=== PATIENT | female | born 1945 | race Caucasian/White ===

== ENCOUNTER 2017-08-06 16:14 | Outpatient (CLI) | payer MEDICARE, OTHER | END 2017-08-06 16:15 | disposition home or self-care (01) | LOC: LAB.R 16:14 | PROVIDERS: ATTEND Physician Assistant Medical | DX: E03.9 Hypothyroidism, unspecified (principal); Z79.899 Other long term (current) drug therapy | CPT/HCPCS: 84443 ==

== ENCOUNTER 2017-08-12 13:40 | Outpatient (CLI) | payer MEDICARE, OTHER ==
--- NOTE | 2017-08-12 17:50 | Ultrasound Report ---
ULTRASOUND LEFT KIDNEY: 08/12/2017 CLINICAL INDICATION: Exophytic lesion left kidney on outside MRI. TECHNIQUE: Real-time scanning was performed with medical representative static images obtained. Ultrasound of the left kidney was performed. It measures 12.7 x 5.8 x 5.4 cm. There is a 1.3 x 1.2 x 1.0 cm exophytic cyst arising from the lateral cortex of the left kidney. No solid mass is seen. No hydronephrosis or perinephric collection is present. IMPRESSION: A 1.3 CM EXOPHYTIC CYST ARISING FROM THE CORTEX OF THE LEFT KIDNEY. NO SOLID MASS. JOB #: [id number] EXT JOB #:[id number]
== END 2017-08-12 13:41 | disposition home or self-care (01) ==
LOC: DI 13:40
PROVIDERS: ATTEND Physician Assistant Medical
DX: Q61.01 Congenital single renal cyst (principal)
CPT/HCPCS: 76775

== ENCOUNTER 2017-10-14 11:28 | Outpatient (CLI) | payer MEDICARE, OTHER ==
--- NOTE | 2017-10-20 11:35 | Mammography Report ---
EXAM: DIGITAL BILATERAL SCREENING MAMMOGRAM: 10/14/2017 CLINICAL INDICATION: A 72-year-old, for screening. COMPARISON: 10/2016, 10/2015, 09/2014. TECHNIQUE: Routine CC and MLO projections were obtained of the breasts. FINDINGS: Parenchymal tissue within the breasts is predominantly fatty replaced. There are no dominant masses, suspicious microcalcifications, or secondary signs of malignancy. In comparison to the previous studies, there are no significant changes. IMPRESSION: NO MAMMOGRAPHIC EVIDENCE OF MALIGNANCY. NO SIGNIFICANT INTERVAL CHANGES. RECOMMENDATION: Screening mammography is recommended annually. BIRADS category 1 - negative. STANDARD QUALIFYING STATEMENTS: 1. This examination was reviewed with the aid of Computed-Aided Detection (CAD) . 2. A negative or benign imaging report should not delay biopsy if clinically suspicious findings are present. Consider surgical consultation if warranted. More than 5% of cancers are not identified by imaging. 3. Dense breasts may obscure an underlying neoplasm. TD: 10/15/2017 16:26 [facility]
== END 2017-10-14 11:29 | disposition home or self-care (01) ==
LOC: DI.N 11:28
PROVIDERS: ATTEND Physician Assistant Medical
DX: Z12.31 Encounter for screening mammogram for malignant neoplasm of breast (principal)
CPT/HCPCS: 77067

== ENCOUNTER 2018-04-27 10:18 | Outpatient (CLI) | payer MEDICARE, OTHER ==
--- NOTE | 2018-04-27 14:54 | XRAY Report ---
Procedure Date: 04/27/2018 Accession Number: [id number] / [id number] Procedure: XR - Hip w/Pelvis 2-3V RT CPT Code: FULL RESULT: EXAM: Hip w/Pelvis 2-3V RT DATE: 04/27/2018 10:29 AM CLINICAL HISTORY: HIP JOINT PAIN,RIGHT COMPARISON: 11/15/2014 TECHNIQUE: 1 view of the pelvis and 1 view of the hip. FINDINGS: Bones: Normal. No fracture or bone lesion. Joints: Mild right hip osteoarthritis. No significant interval change. Soft Tissues: Postoperative changes in both groins. IMPRESSION: Mild osteoarthritis. No significant interval change. [facility]
== END 2018-04-27 10:19 | disposition home or self-care (01) ==
LOC: DI 10:18
PROVIDERS: ATTEND Physician Assistant Medical
DX: M16.11 Unilateral primary osteoarthritis, right hip (principal)

== ENCOUNTER 2018-10-12 13:03 | Outpatient (CLI) | payer MEDICARE, OTHER ==
--- NOTE | 2018-10-13 09:05 | DEXA Report ---
Reason: POSTMENOPAUSAL Procedure Date: 10/12/2018 Accession Number: [id number] / [id number] Procedure: DEX - Dexa Spine and/or Hip CPT Code: FULL RESULT: EXAM: Dexa Spine and/or Hip DATE: 10/12/2018 2:00 PM CLINICAL HISTORY: POSTMENOPAUSAL TECHNIQUE: Dual energy x-ray absorptiometry (DXA) was performed on a Tesseract Interactive System. Regions measured are the AP Spine, femoral neck, and if needed forearm. COMPARISON: None. In accordance with the International Society for Clinical Densitometry (ISCD) guidelines, data from previous exams may be reanalyzed using current recommendations and techniques. This is done to allow a more accurate basis for comparison with the current study. FINDINGS: The data for the lumbar spine is as follows: BMD (g/cm/cm) T-SCORE Z-SCORE REGION L1 1.015 -1.0 0.0 L2 1.233 0.3 1.2 L3 1.282 0.7 1.6 L4 1.102 -0.8 0.1 TOTAL 1.156 -0.2 0.7 NOTE: All evaluable vertebrae are used for classification The data for the hip is as follows: BMD (g/cm/cm) T-SCORE Z-SCORE REGION Neck 0.854 -1.3 -0.1 TOTAL 0.901 -0.8 0.1 NOTE: The femoral neck or total proximal femur, whichever is lowest, is used for classification. IMPRESSION: THE WHO CLASSIFICATION BASED ON THE INTERNATIONAL REFERENCE STANDARD IS OSTEOPENIA. THE FRACTURE RISK IS INCREASED. RECOMMENDATION: Patients with diagnosis of osteoporosis or osteopenia should have regular bone mineral density assessment. For those eligible for Medicare, routine testing is allowed once every 2 years. Testing frequency can be increased for patients who have rapidly progressing disease or for those who are receiving medical therapy to restore bone mass. COMMENT: World Health Organization (WHO) definitions for osteoporosis and osteopenia: NORMAL BMD: T-score at -1.0 or higher, fracture risk is low OSTEOPENIA BMD: T-score between -1.0 and -2.5, fracture risk is increased. OSTEOPOROSIS BMD: T-score at -2.5 or lower, fracture risk is high. National Osteoporosis Foundation recommends: 1. Obtain adequate dietary calcium (at least 1200 mg per day) and vitamin D (400-800 international units per day). 2. Participate, as appropriate, in regular weightbearing and muscle-strengthening exercise. 3. Avoid tobacco use and reduce alcohol and caffeine intake. 4. For more detailed information see the website at www.NOF.org.
== END 2018-10-12 13:04 | disposition home or self-care (01) ==
LOC: DI 13:03
PROVIDERS: ATTEND Physician Assistant Medical
DX: M85.89 Other specified disorders of bone density and structure, multiple sites (principal); Z78.0 Asymptomatic menopausal state
CPT/HCPCS: 77080

== ENCOUNTER 2018-10-17 10:55 | Outpatient (CLI) | payer MEDICARE, OTHER ==
--- NOTE | 2018-10-18 08:47 | Mammography Report ---
Reason: SCREENING MAMMO Procedure Date: 10/17/2018 Accession Number: [id number] / [id number] Procedure: MGN - Screening Mammo Dig Bilat CPT Code: FULL RESULT: EXAM: Screening Mammo Dig Bilat DATE: 10/17/2018 10:55 AM CLINICAL HISTORY: Screening. No reported personal or family history of breast cancer. TECHNIQUE: Bilateral CC and MLO views were obtained. COMPARISON: 10/14/2017 through 09/13/2014 FINDINGS: The breasts demonstrate scattered fibroglandular densities bilaterally. Bilateral breasts: There are no suspicious masses, calcifications or areas of distortion. IMPRESSION: Negative examination RECOMMENDATION: Routine annual screening unless otherwise clinically indicated. BI-RADS CATEGORY 1: Negative STANDARD QUALIFYING STATEMENTS: 1. This examination was reviewed with the aid of Computer-Aided Detection (CAD). 2. A negative or benign imaging report should not preclude biopsy if clinically suspicious findings are present. 3. Dense breasts may obscure an underlying neoplasm. 4. This examination was reviewed without the aid of 3D breast imaging (tomosynthesis).
== END 2018-10-17 23:59 | disposition home or self-care (01) ==
LOC: DI.N 10:55
PROVIDERS: ATTEND Physician Assistant Medical
DX: Z12.31 Encounter for screening mammogram for malignant neoplasm of breast (principal)
CPT/HCPCS: 77067

== ENCOUNTER 2018-10-23 12:01 | Outpatient (CLI) | payer MEDICARE, OTHER ==
--- NOTE | 2018-10-24 11:02 | CT Report ---
Reason: FERNANDOE ABUSE,INTERMITTENT CLAUDICATION,BILATERAL Procedure Date: 10/23/2018 Accession Number: [id number] / [id number] Procedure: CT - Chest/Lung Screen Low Dose W/O CPT Code: FULL RESULT: EXAM CT LUNG SCREEN EXAM DATE: 10/23/2018 01:21 PM. HISTORY: 73-year-old patient with 41-[id number]-akys smoking history. Currently smoking: No. Years since quittin. COMPARISON: None. TECHNIQUE: CT examination of the entire thorax without contrast was performed using low-dose technique. Thin section coronal, axial, sagittal and MIP axial images were obtained. In accordance with CT protocol optimization, one or more of the following dose reduction techniques were utilized for this exam: automated exposure control, adjustment of mA and/or KV based on patient size, or use of iterative reconstructive technique. FINDINGS: Nodules: Right upper lobe: Subpleural 3 mm nodule (4/55). Right middle lobe: None. Right lower lobe: None. Left upper lobe: 3 mm nodule (4/68). Left lower lobe: None. Emphysema: Mild to moderate upper lung predominant centrilobular and paraseptal emphysema. Pleura: Unremarkable. Aorta: No aneurysm. Moderate atheromatous calcified plaque of the aortic arch. Mediastinum: Unremarkable. Coronary calcifications: Coronary artery calcification seen in the left coronary artery and LAD. Other pulmonary findings: Dependent atelectasis of the pulmonary bases. Other extrapulmonary findings: Gastric band is evident. IMPRESSION: Lung-RADS ASSESSMENT CATEGORY: 2 - benign appearance or behavior Probability of malignancy: Less than 1% RECOMMENDATION: Follow-up with repeat low dose screening CT in 12 months per lung RADS guidelines. [facility]
--- NOTE | 2018-10-24 14:19 | Ultrasound Report ---
Reason: NICOTENE ABUSE,INTERMITTENT CLAUDICATION,BILATERAL Procedure Date: 10/23/2018 Accession Number: [id number] / [id number] Procedure: US - Ankle Brachial Index CPT Code: FULL RESULT: EXAM: BILATERAL ANKLE/BRACHIAL INDEX EXAM DATE: 10/23/2018 01:07 PM. CLINICAL HISTORY: Nicotine abuse, intermittent claudication, bilateral. Risk factors: Additional history of hypertension. COMPARISON: None. TECHNIQUE: A blood pressure cuff and pulse volume recording Doppler ultrasound was used to evaluate the arterial pressures in the arms and ankle. No images were acquired. FINDINGS: Three vessel patency is preserved in the bilateral below the knee arterial systems with preserved triphasic arterial waveforms in both dorsalis pedis arteries. Systolic Pressures Right Brachial Artery: 132/51 Posterior Tibial Artery: 149/67 Peroneal Artery: 163/63 Ankle/Brachial Index: 1.23 Left Brachial Artery: 129/51 Posterior Tibial Artery: 160/49 Anterior Tibial Artery: 154/53 Peroneal Artery: 132/52 Ankle/Brachial Index: 1.24 The following peak systolic velocities were recorded in centimeters per second: Right BABITA: PSV 59 cm/sec. TECHNICAL FELLOW: PSV 95 cm/sec. ADAM: PSV 41 cm/sec. DPA: PSV 58 cm/sec. Left BABITA: PSV 39 cm/sec. TECHNICAL FELLOW: PSV 91 cm/sec. ADAM: PSV 86 cm/sec. DPA: PSV 58 cm/sec. IMPRESSION: 1. Right ankle/brachial index: 1.2. 2. Left ankle/brachial index: 1.2. ANKLE/BRACHIAL INDEX REFERENCE STANDARDS 1.0-1.4: Normal 0.90-0.99: Borderline < 0.9: Abnormal [facility]
== END 2018-10-23 12:02 | disposition home or self-care (01) ==
LOC: DI 12:01
PROVIDERS: ATTEND Physician Assistant Medical
DX: Z12.2 Encounter for screening for malignant neoplasm of respiratory organs (principal); Z87.891 Personal history of nicotine dependence; I73.9 Peripheral vascular disease, unspecified
CPT/HCPCS: 93922; G0297

== ENCOUNTER 2018-12-28 11:26 | Outpatient (CLI) | payer MEDICARE, OTHER ==
--- NOTE | 2018-12-28 20:20 | MRI Report ---
Reason: NEUROGERIC CLAUDICATION Procedure Date: 12/28/2018 Accession Number: [id number] / [id number] Procedure: MRI - Lumbar Spine W/O CPT Code: FULL RESULT: EXAM: MRI LUMBAR SPINE WITHOUT CONTRAST EXAM DATE: 12/28/2018 12:04 PM. CLINICAL HISTORY: Neurogenic claudication. COMPARISON: Lumbar spine complete 11/15/2014 3:47 PM. TECHNIQUE: Multiplanar, multisequence T1-weighted and fluid-sensitive sequences of the lumbar spine from T12 to S1 without contrast. Other: None. FINDINGS: Spinal Canal: The conus terminates at L1. The conus medullaris and cauda equina are unremarkable. Alignment: No scoliosis or spondylolisthesis. Bone Marrow: Five hzh-tpj-vnsouat lumbar vertebral bodies are assumed. No gross fractures or bone lesions. No bone marrow replacement. T12 vertebral body 1.8 cm high signal hemangioma. Disk Levels/Facets: T12-L1: Unremarkable. L1-L2: Unremarkable. L2-L3: Severe disk degeneration. Left ligamentum flavum thickening and 3.5 mm ligamentum flavum cyst. Mild spinal canal stenosis. Negative for foraminal stenosis. L3-L4: Mild left facet joint arthrosis. Negative for spinal canal stenosis or foraminal stenosis. L4-L5: Severe facet joint arthrosis. Mild increased fluid apophyseal joints bilaterally. The right intervertebral foramen is negative for stenosis. Mild left foraminal stenosis from facet hypertrophy. L5-S1: Mild facet joint arthrosis. Negative for spinal canal stenosis or foraminal stenosis. Musculature: Lower lumbar and sacrum paraspinal muscle atrophy with fatty replacement. Psoas muscle atrophy bilaterally. Other: The partially visualized retroperitoneum is unremarkable. IMPRESSION: 1. Severe arthrosis L4-L5 facet joints with increased apophyseal joint fluid. Anterolisthesis 7.7 mm L4 on L5 upright lateral neutral lumbar spine radiograph 11/15/2014. Correlate with upright flexion and extension views for instability. 2. Mild left foraminal stenosis from facet hypertrophy. 3. Severe L2-L3 disk degeneration. 4. Mild spinal canal stenosis L2-L3 from left ligamentum flavum thickening and 3.5 mm ligamentum flavum cyst. Comment: The following findings are so common in adults without low back pain that while we report their presence, they must be interpreted with caution and in the context of the clinical situation. (Reference Ry et al, Spine 2001) Prevalence of findings in patients without low back pain: Disk degeneration (any evidence): 92% Disk desiccation/T2 signal loss: 83% Disk height loss: 56% Disk bulge: 64% Disk protrusion: 32% Annular tear/high intensity zone: 38% [facility]
== END 2018-12-28 11:27 | disposition home or self-care (01) ==
LOC: DI 11:26
PROVIDERS: ATTEND Physician Assistant Medical
DX: M48.062 Spinal stenosis, lumbar region with neurogenic claudication (principal); M51.36 Other intervertebral disc degeneration, lumbar region
CPT/HCPCS: 72148

== ENCOUNTER 2018-12-28 11:47 | Outpatient (CLI) | payer MEDICARE, OTHER ==
--- NOTE | 2018-12-28 20:22 | MRI Report ---
Reason: HIP JOINT PAIN, RIGHT Procedure Date: 12/28/2018 Accession Number: [id number] / [id number] Procedure: MRI - Hip RT W/O CPT Code: FULL RESULT: EXAM: RIGHT HIP MRI WITHOUT CONTRAST EXAM DATE: 12/28/2018 12:56 PM. CLINICAL HISTORY: Hip joint pain, right. COMPARISON: Hip with pelvis 2-3 views right 04/27/2018 10:19 AM. TECHNIQUE: Multiplanar, multisequence T1-weighted and fluid-sensitive, small giqht-jp-jqaj sequences of the hip and large nzijb-vz-bfep sequences of the pelvis without contrast. Other: None. FINDINGS: Bones: Negative for fracture. Possible focal chronic AVN 1 cm in transverse dimension and 1.8 cm in AP dimension posterior superior right femoral head. Marrow edema posterior column right acetabulum. Mild right femoral head collar degenerative spurring. Mild marrow edema femoral neck without discrete fracture line. Right Hip: No acetabular retroversion. Femoral head/neck offset is within normal limits. Moderate quantity of right hip joint fluid. Severe chondromalacia posterior right hip. Degenerative labrum tear anterior superior and superior right hip acetabulum. The ligamentum teres is intact. Other Joints: Unremarkable left hip. Degenerative changes inferior right sacroiliac joint. Musculature: No edema or fatty atrophy. The gluteus medius and minimus tendons are normal. The visualized hamstring tendons are normal. The ischiofemoral space is normal. Pelvic Cavity: The visualized viscera are unremarkable. No lymphadenopathy. No free fluid in the pelvis. Other: The visualized sciatic nerves are unremarkable. No bursitis. The subcutaneous tissues are unremarkable. Degenerative changes inferior sacroiliac joints. IMPRESSION: 1. Nonspecific moderate quantity right hip joint fluid. Fluid aspiration if there is clinical concern for a septic joint. 2. Moderate right hip osteoarthritis(Kellgren Raf grade 3) and there is severe posterior right hip chondromalacia. 3. Stress injury or reactive marrow edema posterior column right acetabulum. 4. Trace marrow edema without discrete fracture right femoral neck. 5. Complex degenerative labrum tear anterior superior and superior right hip acetabular labrum. 6. Focal geographic altered marrow signal 1 cm x 1.8 cm posterior superior right femoral head consistent with degenerative marrow signal versus chronic AVN. [facility] MUSCULOSKELETAL RADIOLOGY SECTION
== END 2018-12-28 11:48 | disposition home or self-care (01) ==
LOC: DI 11:47
PROVIDERS: ATTEND Physician Assistant Medical
DX: M16.11 Unilateral primary osteoarthritis, right hip (principal); M94.251 Chondromalacia, right hip; S73.191A Other sprain of right hip, initial encounter; M48.062 Spinal stenosis, lumbar region with neurogenic claudication; M51.36 Other intervertebral disc degeneration, lumbar region
CPT/HCPCS: 72148

== ENCOUNTER 2019-10-12 11:00 | Outpatient (CLI) | payer MEDICARE, OTHER ==
--- NOTE | 2019-10-13 08:59 | Mammography Report ---
Reason: ROUTINE MAMMO Procedure Date: 10/12/2019 Accession Number: [id number] / [id number] Procedure: MGN - Screening Mammo Dig Bilat CPT Code: Final Report FULL RESULT: EXAM: Screening Mammo Dig Bilat DATE: 10/12/2019 11:22 AM CLINICAL HISTORY: Screening encounter. History of early menses. TECHNIQUE: (B) - Bilateral CC and MLO views were obtained. COMPARISON: 10/17/2018 through 10/22/2011. PARENCHYMAL PATTERN: (A) - The breast(s) demonstrate(s) scattered fibroglandular densities. FINDINGS: There are no suspicious masses, calcifications, or areas of distortion. IMPRESSION: Negative examination. BI-RADS category 1. RECOMMENDATION: (ANNUAL) - Recommend routine annual screening mammography. BI-RADS CATEGORY: (1) - Negative. STANDARD QUALIFYING STATEMENTS: 1. This examination was not reviewed with the aid of Computer-Aided Detection (CAD). 2. A negative or benign imaging report should not preclude biopsy if clinically suspicious findings are present. 3. Dense breasts may obscure an underlying neoplasm. 4. This examination was reviewed without the aid of 3D breast imaging (tomosynthesis).
== END 2019-10-12 11:01 | disposition home or self-care (01) ==
LOC: DI.N 11:00
DX: Z12.31 Encounter for screening mammogram for malignant neoplasm of breast (principal)
CPT/HCPCS: 77067

== ENCOUNTER 2020-09-25 13:06 | Outpatient (CLI) | payer MEDICARE, OTHER | END 2020-09-25 13:07 | disposition home or self-care (01) | LOC: DI 13:06 | PROVIDERS: ATTEND Nurse Practitioner | DX: R01.1 Cardiac murmur, unspecified (principal) | CPT/HCPCS: 93306 ==

== ENCOUNTER 2020-10-17 12:18 | Outpatient (CLI) | payer MEDICARE, OTHER ==
--- NOTE | 2020-10-18 05:37 | Mammography Report ---
BILATERAL DIGITAL SCREENING MAMMOGRAM 3D/2D: 10/17/2020 CLINICAL: Routine screening. Comparison is made to exams dated: 10/12/2019 mammogram, 10/17/2018 mammogram, 10/14/2017 mammogram, 10/07/2016 mammogram, 10/17/2015 mammogram, and 09/13/2014 mammogram - [facility]. The tissue of both breasts is predominantly fatty. No significant masses, calcifications, or other findings are seen in either breast. There has been no significant interval change. IMPRESSION: NEGATIVE There is no mammographic evidence of malignancy. A 1 year screening mammogram is recommended. This exam was interpreted at Station ID: [id number]. NOTE: For mammograms, a report in lay terms will be sent to the patient. Approximately 15% of breast malignancies will not be visualized mammographically. In the management of a palpable breast mass, a negative mammogram must not discourage biopsy of a clinically suspicious lesion. Electronically Signed By: Zaid Balderrama acr/penrad:10/17/2020 13:19:16 ACR BI-RADS Category 1: Negative 3341F PARENCHYMAL PATTERN: (F) - The breast(s) demonstrate(s) diffuse fatty replacement. BI-RADS CATEGORY: (1) - 1 RECOMMENDATION: (ANNUAL) - Recommend routine annual screening mammography. [id number] 1 year screening LATERALITY: (B)
== END 2020-10-17 12:19 | disposition home or self-care (01) ==
LOC: DI.N 12:18
PROVIDERS: ATTEND Nurse Practitioner
DX: Z12.31 Encounter for screening mammogram for malignant neoplasm of breast (principal)
CPT/HCPCS: 77067

== ENCOUNTER 2021-01-22 08:45 | Outpatient (CLI) | payer MEDICARE, OTHER ==
[2021-01-22 12:06] LABS: BASOPHILS # (AUTO) 0.1 10^3/uL (0.0-0.1); BASOPHILS % (AUTO) 0.8 %; EOSINOPHILS # (AUTO) 0.2 10^3/uL (0.0-0.7); EOSINOPHILS % (AUTO) 3.5 %; HCT - HEMATOCRIT 44.7 % (37.0-47.0); HGB - HEMOGLOBIN 14.5 g/dL (12.0-16.0); LYMPHOCYTES # (AUTO) 1.4 10^3/uL (1.5-3.5); LYMPHOCYTES % (AUTO) 21.5 %; MEAN CORPUSCULAR HEMOGLOBIN 31.7 pg (27.0-31.0); MEAN CORPUSCULAR HGB CONC 32.4 g/dL (32.0-36.0); MEAN CORPUSCULAR VOLUME 97.6 fL (81.0-99.0); MEAN PLATELET VOLUME 10.5 fL (7.9-10.8); MONOCYTES # (AUTO) 0.8 10^3/uL (0.0-1.0); MONOCYTES % (AUTO) 12.2 %; NEUTROPHILS % (AUTO) 61.7 %; PLT - PLATELET COUNT 282 10^3/uL (130-450); RED BLOOD COUNT 4.58 10^6/uL (4.20-5.40); RED CELL DISTRIBUTION WIDTH 12.2 % (12.0-15.0); WHITE BLOOD COUNT 6.5 x10^3/uL (4.8-10.8)
[2021-01-22 12:41] LABS: ALBUMIN 3.8 g/dL (3.2-5.5); ALBUMIN/GLOBULIN RATIO 1.2 (1.0-2.2); BILIRUBIN,TOTAL 0.5 mg/dL (0.2-1.0); CALCIUM 9.6 mg/dL (8.5-10.3); CREATININE 0.6 mg/dL (0.4-1.0); POTASSIUM 4.2 mmol/L (3.5-5.0); TOTAL PROTEIN 7.1 g/dL (6.7-8.2)
== END 2021-01-22 23:59 | disposition home or self-care (01) ==
LOC: LAB.WCP 08:45
PROVIDERS: ATTEND Nurse Practitioner
DX: R19.7 Diarrhea, unspecified (principal)
CPT/HCPCS: 36415; 80053; 85025

== ENCOUNTER 2021-02-04 07:00 | Outpatient (CLI) | payer MEDICARE, OTHER ==
[2021-02-04 18:30] LABS: THYROID STIMULATING HORMONE 0.1 uIU/mL (0.34-5.60)
[2021-02-04 18:31] LABS: FREE T3 2.62 pg/mL (2.5-3.9)
[2021-02-04 18:32] LABS: FREE T4 (FREE THYROXINE) 1.18 ng/dL (0.58-1.64)
== END 2021-02-04 23:59 | disposition home or self-care (01) ==
LOC: LAB.WCP 07:00
PROVIDERS: ATTEND Nurse Practitioner
DX: E03.9 Hypothyroidism, unspecified (principal)
CPT/HCPCS: 36415; 84439; 84443; 84481

== ENCOUNTER 2021-07-24 12:11 | Outpatient (CLI) | payer MEDICARE, OTHER ==
[2021-07-24 12:38] LABS: BASOPHILS % (AUTO) 0.7 %; EOSINOPHILS # (AUTO) 0.3 10^3/uL (0.0-0.7); EOSINOPHILS % (AUTO) 4.9 %; HCT - HEMATOCRIT 46.5 % (37.0-47.0); HGB - HEMOGLOBIN 15.4 g/dL (12.0-16.0); LYMPHOCYTES # (AUTO) 1.2 10^3/uL (1.5-3.5); LYMPHOCYTES % (AUTO) 20.1 %; MEAN CORPUSCULAR HEMOGLOBIN 32.4 pg (27.0-31.0); MEAN CORPUSCULAR HGB CONC 33.1 g/dL (32.0-36.0); MEAN CORPUSCULAR VOLUME 97.7 fL (81.0-99.0); MEAN PLATELET VOLUME 9.8 fL (7.9-10.8); MONOCYTES # (AUTO) 0.9 10^3/uL (0.0-1.0); MONOCYTES % (AUTO) 15.5 %; NEUTROPHILS # (AUTO) 3.4 10^3/uL (1.5-6.6); NEUTROPHILS % (AUTO) 58.6 %; PLT - PLATELET COUNT 275 10^3/uL (130-450); RED BLOOD COUNT 4.76 10^6/uL (4.20-5.40); RED CELL DISTRIBUTION WIDTH 12.9 % (12.0-15.0); WHITE BLOOD COUNT 5.9 x10^3/uL (4.8-10.8)
[2021-07-24 12:55] LABS: ALBUMIN 3.7 g/dL (3.2-5.5); ALBUMIN/GLOBULIN RATIO 1.1 (1.0-2.2); BILIRUBIN,TOTAL 0.6 mg/dL (0.2-1.0); CALCIUM 9.5 mg/dL (8.5-10.3); CREATININE 0.6 mg/dL (0.4-1.0); CRP - C-REACTIVE PROTEIN 1.8 mg/dL (0-1.0); TOTAL PROTEIN 7.2 g/dL (6.7-8.2)
== END 2021-07-24 12:12 | disposition home or self-care (01) ==
LOC: LAB 12:11
PROVIDERS: ATTEND Physician Assistant Medical
DX: R19.7 Diarrhea, unspecified (principal)
CPT/HCPCS: 36415; 80053; 81599; 83993; 85025; 85651; 86140; 87177; 87209; 87329; 87338; 87493

== ENCOUNTER 2021-07-31 08:00 | Outpatient (CLI) | payer MEDICARE, OTHER ==
[2021-07-31 15:43] LABS: H. PYLORIS ANTIGEN STL NEGATIVE (Negative)
== END 2021-07-31 23:59 | disposition home or self-care (01) ==
LOC: LAB.WCP 08:00
PROVIDERS: ATTEND Physician Assistant Medical
DX: R19.7 Diarrhea, unspecified (principal)
CPT/HCPCS: 81599; 83993; 87045; 87177; 87209; 87329; 87338; 87427; 87449; 87493

== ENCOUNTER 2021-10-16 10:42 | Outpatient (CLI) | payer MEDICARE, OTHER ==
--- NOTE | 2021-10-17 08:16 | Mammography Report ---
BILATERAL DIGITAL SCREENING MAMMOGRAM 3D/2D: 10/16/2021 CLINICAL: Routine screening. Comparison is made to exams dated: 10/17/2020 mammogram, 10/12/2019 mammogram, 10/17/2018 mammogram, 10/14/2017 mammogram, 10/07/2016 mammogram, and 10/17/2015 mammogram - [facility]. The tissue of both breasts is predominantly fatty. No significant masses, calcifications, or other findings are seen in either breast. There has been no significant interval change. IMPRESSION: NEGATIVE There is no mammographic evidence of malignancy. A 1 year screening mammogram is recommended. This exam was interpreted at Station ID: [id number]. NOTE: For mammograms, a report in lay terms will be sent to the patient. Approximately 15% of breast malignancies will not be visualized mammographically. In the management of a palpable breast mass, a negative mammogram must not discourage biopsy of a clinically suspicious lesion. Electronically Signed By: Nicole menchaca/mariano:10/16/2021 12:07:48 ACR BI-RADS Category 1: Negative 3341F PARENCHYMAL PATTERN: (F) - The breast(s) demonstrate(s) diffuse fatty replacement. BI-RADS CATEGORY: (1) - 1 RECOMMENDATION: (ANNUAL) - Recommend routine annual screening mammography. [id number] 1 year screening LATERALITY: (B)
== END 2021-10-16 10:43 | disposition home or self-care (01) ==
LOC: DI.N 10:42
DX: Z12.31 Encounter for screening mammogram for malignant neoplasm of breast (principal)

== ENCOUNTER 2021-11-19 11:47 | Outpatient (CLI) | payer MEDICARE, OTHER ==
[2021-11-19 18:33] LABS: BASOPHILS # (AUTO) 0.1 10^3/uL (0.0-0.1); BASOPHILS % (AUTO) 0.6 %; EOSINOPHILS # (AUTO) 0.3 10^3/uL (0.0-0.7); HCT - HEMATOCRIT 44.6 % (37.0-47.0); HGB - HEMOGLOBIN 14.8 g/dL (12.0-16.0); LYMPHOCYTES # (AUTO) 1.8 10^3/uL (1.5-3.5); LYMPHOCYTES % (AUTO) 23.4 %; MEAN CORPUSCULAR HEMOGLOBIN 32.1 pg (27.0-31.0); MEAN CORPUSCULAR HGB CONC 33.2 g/dL (32.0-36.0); MEAN CORPUSCULAR VOLUME 96.7 fL (81.0-99.0); MEAN PLATELET VOLUME 10.5 fL (7.9-10.8); MONOCYTES # (AUTO) 0.8 10^3/uL (0.0-1.0); MONOCYTES % (AUTO) 9.8 %; NEUTROPHILS # (AUTO) 4.8 10^3/uL (1.5-6.6); NEUTROPHILS % (AUTO) 61.9 %; PLT - PLATELET COUNT 294 10^3/uL (130-450); RED BLOOD COUNT 4.61 10^6/uL (4.20-5.40); RED CELL DISTRIBUTION WIDTH 13.1 % (12.0-15.0); WHITE BLOOD COUNT 7.8 x10^3/uL (4.8-10.8)
[2021-11-19 18:54] LABS: THYROID STIMULATING HORMONE 0.17 uIU/mL (0.34-5.60)
[2021-11-19 18:55] LABS: FREE T3 3.18 pg/mL (2.5-3.9)
[2021-11-19 18:56] LABS: FREE T4 (FREE THYROXINE) 1.07 ng/dL (0.58-1.64)
[2021-11-19 19:01] LABS: FERRITIN 84.1 ng/mL (11.0-306.8)
== END 2021-11-19 23:59 | disposition home or self-care (01) ==
LOC: LAB.WCP 11:47
PROVIDERS: ATTEND Physician Assistant Medical
DX: L65.9 Nonscarring hair loss, unspecified (principal)
CPT/HCPCS: 36415; 82728; 84439; 84443; 84481; 85025

== ENCOUNTER 2022-11-20 11:20 | Outpatient (CLI) | payer MEDICARE ==
[2022-11-20 18:34] LABS: BASOPHILS # (AUTO) 0.1 10^3/uL (0.0-0.1); BASOPHILS % (AUTO) 0.5 %; EOSINOPHILS # (AUTO) 0.3 10^3/uL (0.0-0.7); EOSINOPHILS % (AUTO) 2.8 %; HCT - HEMATOCRIT 44.5 % (37.0-47.0); HGB - HEMOGLOBIN 14.6 g/dL (12.0-16.0); LYMPHOCYTES # (AUTO) 2.4 10^3/uL (1.5-3.5); LYMPHOCYTES % (AUTO) 21.8 %; MEAN CORPUSCULAR HEMOGLOBIN 31.7 pg (27.0-31.0); MEAN CORPUSCULAR HGB CONC 32.8 g/dL (32.0-36.0); MEAN CORPUSCULAR VOLUME 96.7 fL (81.0-99.0); MEAN PLATELET VOLUME 10.2 fL (7.9-10.8); MONOCYTES # (AUTO) 1.2 10^3/uL (0.0-1.0); MONOCYTES % (AUTO) 10.9 %; NEUTROPHILS % (AUTO) 63.6 %; PLT - PLATELET COUNT 313 10^3/uL (130-450); RED CELL DISTRIBUTION WIDTH 12.5 % (12.0-15.0); WHITE BLOOD COUNT 10.9 x10^3/uL (4.8-10.8)
[2022-11-20 19:02] LABS: ALBUMIN 4.1 g/dL (3.2-5.5); ALBUMIN/GLOBULIN RATIO 1.2 (1.0-2.2); ALKALINE PHOSPHATASE 60 IU/L (42-121); ALT ALANINE AMINOTRANSFERASE 19 IU/L (10-60); AST ASPARTATE AMINOTRANSFERASE 18 IU/L (10-42); BILIRUBIN,TOTAL 0.7 mg/dL (0.2-1.0); BUN - BLOOD UREA NITROGEN 20 mg/dL (6-20); CALCIUM 10.4 mg/dL (8.5-10.3); CARBON DIOXIDE - CO2 33 mmol/L (21-32); CHLORIDE 96 mmol/L (101-111); CHOL/HDL RATIO 2.4 (<4.4); CHOLESTEROL 225 mg/dL; CREATININE 0.8 mg/dL (0.4-1.0); GFR - MDRD 70 (>89); GLUCOSE 96 mg/dL (70-100); HDL CHOLESTEROL 95 mg/dL; LDL CHOLESTEROL,CALCULATED 110 mg/dL; LDL/HDL RATIO 1.2 (<4.4); POTASSIUM 4.4 mmol/L (3.5-5.0); SODIUM 139 mmol/L (135-145); TOTAL PROTEIN 7.5 g/dL (6.7-8.2); TRIGLYCERIDES 102 mg/dL; VLDL CHOLESTEROL 20 mg/dL
[2022-11-20 19:04] LABS: THYROID STIMULATING HORMONE 0.85 uIU/mL (0.34-5.60)
== END 2022-11-20 11:21 | disposition home or self-care (01) ==
LOC: LAB.N 11:20
PROVIDERS: ATTEND Nurse Practitioner Family
DX: I10 Essential (primary) hypertension (principal); E03.9 Hypothyroidism, unspecified; R07.9 Chest pain, unspecified; Z79.899 Other long term (current) drug therapy
CPT/HCPCS: 36415; 80053; 80061; 83721; 84443; 85025

== ENCOUNTER 2022-11-24 10:50 | Outpatient (CLI) | payer MEDICARE ==
--- NOTE | 2022-11-25 09:16 | Ultrasound Report ---
LIMITED ULTRASOUND OF RIGHT BREAST: 11/24/2022 CLINICAL: Diffuse right breast pain. Comparison is made to exams dated: 11/24/2022 mammogram, 10/16/2021 mammogram, 10/17/2020 mammogram, 10/12/2019 mammogram, 10/17/2018 mammogram, and 10/14/2017 mammogram - [facility]. Real-time ultrasound of the right breast upper inner quadrant was performed. Carranza scale images of th e real-time examination were reviewed. No significant abnormalities were seen sonographically in the right breast. IMPRESSION: NEGATIVE There is no sonographic evidence of malignancy. There is no abnormality seen in the right breast to correspond with the area of clinical concern and pain in the upper inner quadrant, however, recommend clinical follow up for persistent or worsening s ymptoms, or development of any clinically suspicious findings. A 1 year screening mammogram is recommended. Findings and recommendations were conveyed to the patient during today's evaluation. This exam was interpreted at Station ID: [id number]. Electronically Signed By: Phani Mariscal M.D. aty/:11/24/2022 12:38:02 Ultrasound BI-RADS: 1 Negative BI-RADS CATEGORY: (1) - 1 RECOMMENDATION: (ANNUAL) - Recommend routine annual screening mammography. [id number] 1 year screening LATERALITY: (B)
--- NOTE | 2022-11-25 09:16 | Mammography Report ---
BILATERAL DIGITAL DIAGNOSTIC MAMMOGRAM 3D/2D: 11/24/2022 CLINICAL: Diffuse right breast pain with somewhat localization to the upper inner quadrant. Due for b ilateral imaging. Comparison is made to exams dated: 10/16/2021 mammogram, 10/17/2020 mammogram, 10/12/2019 mammogram, 10/17/2018 mammogram, 10/14/2017 mammogram, and 10/07/2016 mammogram - [facility]. There are scattered areas of fibroglandular density in both breasts (category b / 25%-50% glandular t issue). No significant masses, calcifications, or other findings are seen in either breast. IMPRESSION: INCOMPLETE: NEEDS ADDITIONAL IMAGING EVALUATION There is no abnormality seen in the right breast to correspond with the area of clinical concern and pain in the upper inner quadrant, however, an ultrasound is recommended for further evaluation and is scheduled to immediately follow this examination. Based on the Tyrer Cuzick model (a risk assessment model) the patients lifetime risk is 2.7% and her 10 year risk is 2.7%. According to the ACR, ACS, and NCCN guidelines, an annual breast MRI exam román g with mammogram is recommended if the patients lifetime risk is 20% or greater. This exam was interpreted at Station ID: [id number]. NOTE: For mammograms, a report in lay terms will be sent to the patient. Approximately 15% of breast malignancies will not be visualized mammographically. In the management of a palpable breast mass, a negative mammogram must not discourage biopsy of a clinically suspicious lesion. Electronically Signed By: Phani Mariscal M.D. aty/:11/24/2022 12:37:06 ACR BI-RADS Category 0: Incomplete 3340F PARENCHYMAL PATTERN: (A) - The breast(s) demonstrate(s) scattered fibroglandular densities. BI-RADS CATEGORY: (0) - 0 Ultrasound [id number] Immediate follow-up LATERALITY: (R)
== END 2022-11-24 10:51 | disposition home or self-care (01) ==
LOC: DI 10:50
PROVIDERS: ATTEND Nurse Practitioner Family
DX: N64.4 Mastodynia (principal)

== ENCOUNTER 2023-02-03 09:19 | Outpatient (CLI) | payer MEDICARE ==
[2023-02-03 11:39] LABS: BASOPHILS # (AUTO) 0.1 10^3/uL (0.0-0.1); BASOPHILS % (AUTO) 0.8 %; EOSINOPHILS # (AUTO) 0.7 10^3/uL (0.0-0.7); EOSINOPHILS % (AUTO) 8.8 %; HCT - HEMATOCRIT 44.3 % (37.0-47.0); HGB - HEMOGLOBIN 14.4 g/dL (12.0-16.0); LYMPHOCYTES # (AUTO) 1.9 10^3/uL (1.5-3.5); LYMPHOCYTES % (AUTO) 25.6 %; MEAN CORPUSCULAR HEMOGLOBIN 31.3 pg (27.0-31.0); MEAN CORPUSCULAR HGB CONC 32.5 g/dL (32.0-36.0); MEAN CORPUSCULAR VOLUME 96.3 fL (81.0-99.0); MEAN PLATELET VOLUME 10.3 fL (7.9-10.8); MONOCYTES # (AUTO) 0.8 10^3/uL (0.0-1.0); MONOCYTES % (AUTO) 10.9 %; NEUTROPHILS % (AUTO) 53.5 %; PLT - PLATELET COUNT 329 10^3/uL (130-450); RED CELL DISTRIBUTION WIDTH 12.4 % (12.0-15.0); WHITE BLOOD COUNT 7.4 x10^3/uL (4.8-10.8)
[2023-02-03 12:17] LABS: THYROID STIMULATING HORMONE 0.54 uIU/mL (0.34-5.60)
[2023-02-03 13:18] LABS: ALBUMIN 3.8 g/dL (3.2-5.5); ALBUMIN/GLOBULIN RATIO 1.1 (1.0-2.2); ALKALINE PHOSPHATASE 60 IU/L (42-121); ALT ALANINE AMINOTRANSFERASE 17 IU/L (10-60); AST ASPARTATE AMINOTRANSFERASE 20 IU/L (10-42); BILIRUBIN,TOTAL 0.5 mg/dL (0.2-1.0); BUN - BLOOD UREA NITROGEN 14 mg/dL (6-20); CALCIUM 9.1 mg/dL (8.5-10.3); CARBON DIOXIDE - CO2 29 mmol/L (21-32); CHLORIDE 100 mmol/L (101-111); CHOL/HDL RATIO 2.1 (<4.4); CHOLESTEROL 199 mg/dL; CREATININE 0.7 mg/dL (0.4-1.0); GFR - MDRD 82 (>89); GLUCOSE 107 mg/dL (70-100); HDL CHOLESTEROL 95 mg/dL; LDL CHOLESTEROL,CALCULATED 95 mg/dL; POTASSIUM 3.9 mmol/L (3.5-5.0); SODIUM 134 mmol/L (135-145); TOTAL PROTEIN 7.2 g/dL (6.7-8.2); TRIGLYCERIDES 44 mg/dL; VLDL CHOLESTEROL 9 mg/dL
== END 2023-02-03 09:20 | disposition home or self-care (01) ==
LOC: LAB.N 09:19
PROVIDERS: ATTEND Internal Medicine Cardiovascular Disease
DX: Z00.00 Encounter for general adult medical examination without abnormal findings (principal); I25.2 Old myocardial infarction; E03.9 Hypothyroidism, unspecified; I10 Essential (primary) hypertension
CPT/HCPCS: 36415; 80053; 80061; 83721; 84443; 85025

== ENCOUNTER 2023-08-13 10:58 | Outpatient (CLI) | payer MEDICARE ==
--- NOTE | 2023-08-13 13:44 | XRAY Report ---
PROCEDURE: Hips 2V BILAT INDICATIONS: LOW BACK PAIN TECHNIQUE: 2 views of the hips were acquired. COMPARISON: None. FINDINGS: Bones: No fractures or dislocations. No suspicious bony lesions. Bilateral nonuniform joint space narrowing with osteophytosis. In the right hip, there is subchondral cystic change and early bony de formity. Soft tissues: No suspicious soft tissue calcifications or masses. Surgical clips project of the jaciel. IMPRESSION: Moderate to severe right hip osteoarthritis. Kellgren-Raf scale of osteoarthritis: 3. Mild to moderate left hip osteoarthritis. Kellgren-Raf scale of osteoarthritis: 2. Reviewed by: Fred Kulkarni on 08/13/2023 1:42 PM PDT Approved by: Fred Kulkarni on 08/13/2023 1:42 PM PDT Station ID: [id number]
--- NOTE | 2023-08-13 13:45 | XRAY Report ---
PROCEDURE: Lumbar Spine 2 View INDICATIONS: LOW BACK PAIN TECHNIQUE: 3 views of the lumbar spine were acquired. COMPARISON: None. FINDINGS: Bones: 5 gfs-pti-slhrqsy vertebrae are present. Grade 1 anterolisthesis of L4 on L5. Facet arthrosis L4-5 and L5-S1. No vertebral body compression fractures. No suspicious bony lesions. Moderate disc height loss at all levels. Soft tissues: Overlying bowel gas pattern is normal. No suspicious soft tissue calcifications. Gas tric band surgery. IMPRESSION: Moderate, multilevel degenerative disease and lower lumbar facet arthrosis. Reviewed by: Fred Kulkarni on 08/13/2023 1:43 PM PDT Approved by: Fred Kulkarni on 08/13/2023 1:43 PM PDT Station ID: [id number]
== END 2023-08-13 10:59 | disposition home or self-care (01) ==
LOC: DI 10:58
PROVIDERS: ATTEND Physician Assistant Medical
DX: M47.816 Spondylosis without myelopathy or radiculopathy, lumbar region (principal); M47.817 Spondylosis without myelopathy or radiculopathy, lumbosacral region

== ENCOUNTER 2023-10-08 10:15 | Outpatient (CLI) | payer MEDICARE ==
[2023-10-08 13:22] LABS: ALBUMIN 4.2 g/dL (3.2-5.5); ALBUMIN/GLOBULIN RATIO 1.5 (1.0-2.2); BILIRUBIN,TOTAL 0.6 mg/dL (0.2-1.0); CALCIUM 9.9 mg/dL (8.5-10.3); CREATININE 0.8 mg/dL (0.6-1.3); POTASSIUM 4.2 mmol/L (3.5-4.5)
[2023-10-08 13:25] LABS: BASOPHILS # (AUTO) 0.1 10^3/uL (0.0-0.1); BASOPHILS % (AUTO) 0.7 %; EOSINOPHILS # (AUTO) 0.5 10^3/uL (0.0-0.7); EOSINOPHILS % (AUTO) 6.6 %; HCT - HEMATOCRIT 45.5 % (37.0-47.0); HGB - HEMOGLOBIN 14.6 g/dL (12.0-16.0); LYMPHOCYTES # (AUTO) 1.9 10^3/uL (1.5-3.5); LYMPHOCYTES % (AUTO) 24.5 %; MEAN CORPUSCULAR HEMOGLOBIN 31.1 pg (27.0-31.0); MEAN CORPUSCULAR HGB CONC 32.1 g/dL (32.0-36.0); MEAN PLATELET VOLUME 10.4 fL (7.9-10.8); MONOCYTES # (AUTO) 0.9 10^3/uL (0.0-1.0); MONOCYTES % (AUTO) 11.1 %; NEUTROPHILS # (AUTO) 4.4 10^3/uL (1.5-6.6); NEUTROPHILS % (AUTO) 56.8 %; PLT - PLATELET COUNT 279 10^3/uL (130-450); RED BLOOD COUNT 4.69 10^6/uL (4.20-5.40); RED CELL DISTRIBUTION WIDTH 13.1 % (12.0-15.0); WHITE BLOOD COUNT 7.7 x10^3/uL (4.8-10.8)
[2023-10-08 13:40] LABS: THYROID STIMULATING HORMONE 0.31 uIU/mL (0.34-5.60)
== END 2023-10-08 10:16 | disposition home or self-care (01) ==
LOC: LAB.N 10:15
PROVIDERS: ATTEND Physician Assistant
DX: E03.9 Hypothyroidism, unspecified (principal); L29.9 Pruritus, unspecified
CPT/HCPCS: 36415; 80053; 84439; 84443; 85025

== ENCOUNTER 2023-11-11 10:26 | Outpatient (CLI) | payer MEDICARE ==
--- NOTE | 2023-11-17 11:21 | Ultrasound Report ---
PROCEDURE: Abdomen Limited INDICATIONS: DIARRHEA TECHNIQUE: Real-time focused scanning was performed of the abdomen, with image documentation. COMPARISONS: None. FINDINGS: Liver: Liver is normal in size and homogeneous in echotexture. Liver measures normal in size at 15. 3 cm. Gallbladder: Unremarkable. Uniform gallbladder wall thickness of 1.3 mm. Biliary ducts: Intrahepatic bile ducts are non-dilated. Extrahepatic bile duct caliber measures 2.9 mm. Normal is 6-7 mm or less in diameter, or 10 mm or less post-cholecystectomy. Pancreas: Visualized portions of the pancreas are sonographically normal. Right kidney: Normal in size and echotexture. Right kidney measures 10.98 cm long. No hydronephrosis or nephrolithiasis. No solid masses. No complex renal cystic lesions which require follow-up. Aorta: Visualized aorta is normal in caliber at less than 3 cm. IVC: Intrahepatic inferior vena cava is patent. Miscellaneous: No free abdominal fluid. IMPRESSION: Unremarkable abdominal ultrasound. Reviewed by: Hans Miller MD on 11/11/2023 12:26 PM PST Approved by: Hans Miller MD on 11/11/2023 12:26 PM PST Station ID: [id number]
== END 2023-11-11 10:27 | disposition home or self-care (01) ==
LOC: DI 10:26
PROVIDERS: ATTEND Physician Assistant Medical
DX: R19.7 Diarrhea, unspecified (principal)

== ENCOUNTER 2024-02-10 16:26 | Outpatient (CLI) | payer MEDICARE ==
--- NOTE | 2024-02-11 14:32 | XRAY Report ---
PROCEDURE: Knee 4+V RT INDICATIONS: PX IN RT KNEE TECHNIQUE: 4 views of the knee(s) were acquired. COMPARISON: X-ray knee 03/14/2024 FINDINGS: Bones: No fractures or dislocations. No suspicious bony lesions. Moderate medial and patellofemor al as well as minimal to mild lateral compartment narrowing. Minimal particular osteophytes are prese nt without erosions. Appearances are mildly progressive. Old healed proximal fibular fracture. Soft tissues: Minimal knee joint effusion. No suspicious soft tissue calcifications or masses. 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 Reviewed by: Ashli Huynh MD on 02/11/2024 2:31 PM PDT Approved by: Ashli Huynh MD on 02/11/2024 2:31 PM PDT Station ID: [id number]
== END 2024-02-10 16:27 | disposition home or self-care (01) ==
LOC: DI 16:26
PROVIDERS: ATTEND Registered Nurse
DX: M17.11 Unilateral primary osteoarthritis, right knee (principal)

== ENCOUNTER 2024-03-13 10:59 | Outpatient (CLI) | payer MEDICARE ==
[2024-03-13 17:50] LABS: BASOPHILS # (AUTO) 0.1 10^3/uL (0.0-0.1); BASOPHILS % (AUTO) 0.9 %; EOSINOPHILS # (AUTO) 0.4 10^3/uL (0.0-0.7); EOSINOPHILS % (AUTO) 5.8 %; HGB - HEMOGLOBIN 14.4 g/dL (12.0-16.0); LYMPHOCYTES # (AUTO) 1.9 10^3/uL (1.5-3.5); MEAN CORPUSCULAR HEMOGLOBIN 32.1 pg (27.0-31.0); MEAN CORPUSCULAR HGB CONC 32.7 g/dL (32.0-36.0); MEAN CORPUSCULAR VOLUME 98.2 fL (81.0-99.0); MEAN PLATELET VOLUME 10.4 fL (7.9-10.8); MONOCYTES # (AUTO) 0.9 10^3/uL (0.0-1.0); MONOCYTES % (AUTO) 12.1 %; NEUTROPHILS # (AUTO) 4.3 10^3/uL (1.5-6.6); NEUTROPHILS % (AUTO) 55.9 %; PLT - PLATELET COUNT 269 10^3/uL (130-450); RED BLOOD COUNT 4.48 10^6/uL (4.20-5.40); RED CELL DISTRIBUTION WIDTH 12.9 % (12.0-15.0); WHITE BLOOD COUNT 7.6 x10^3/uL (4.8-10.8)
[2024-03-13 18:17] LABS: ALBUMIN 4.2 g/dL (3.2-5.5); ALBUMIN/GLOBULIN RATIO 1.4 (1.0-2.2); ALKALINE PHOSPHATASE 50 IU/L (42-121); ALT ALANINE AMINOTRANSFERASE 13 IU/L (10-60); AST ASPARTATE AMINOTRANSFERASE 14 IU/L (10-42); BILIRUBIN,TOTAL 0.4 mg/dL (0.2-1.0); BUN - BLOOD UREA NITROGEN 17 mg/dL (6-20); CALCIUM 9.9 mg/dL (8.5-10.3); CARBON DIOXIDE - CO2 31 mmol/L (21-32); CHLORIDE 99 mmol/L (101-111); CHOL/HDL RATIO 2.3 (<4.4); CHOLESTEROL 226 mg/dL; CREATININE 0.7 mg/dL (0.6-1.3); GFR - MDRD 81 (>89); GLUCOSE 116 mg/dL (74-104); HDL CHOLESTEROL 100 mg/dL; LDL CHOLESTEROL,CALCULATED 109 mg/dL; LDL/HDL RATIO 1.1 (<4.4); POTASSIUM 4.8 mmol/L (3.5-4.5); SODIUM 135 mmol/L (135-145); TOTAL PROTEIN 7.1 g/dL (6.4-8.9); TRIGLYCERIDES 87 mg/dL (48-352); VLDL CHOLESTEROL 17 mg/dL
[2024-03-13 18:24] LABS: THYROID STIMULATING HORMONE 0.51 uIU/mL (0.34-5.60)
== END 2024-03-13 11:00 | disposition home or self-care (01) ==
LOC: LAB.N 10:59
PROVIDERS: ATTEND Physician Assistant Medical
DX: I10 Essential (primary) hypertension (principal); Z13.220 Encounter for screening for lipoid disorders; E03.9 Hypothyroidism, unspecified
CPT/HCPCS: 36415; 80053; 80061; 83721; 84443; 85025

== ENCOUNTER 2024-05-03 13:40 | Emergency (ER) | payer MEDICARE ==
[2024-05-03 13:56] VITALS: O2SAT 98
--- NOTE | 2024-05-03 15:11 | CT Report ---
PROCEDURE: Head WO INDICATIONS: fall/head inj TECHNIQUE: Noncontrast 4.5 mm thick angled axial sections acquired from the foramen magnum to the vertex. For r adiation dose reduction, the following was used: automated exposure control, adjustment of mA and/or kV according to patient size. COMPARISON: None. FINDINGS: Image quality: Excellent. CSF spaces: Basal cisterns are patent. No extra-axial fluid collections. Ventricles are normal in size and shape. Brain: No midline shift. No intracranial masses or hemorrhage. Carranza-white matter interface is norm al. Intracranial carotid calcifications. Age-related volume loss and small vessel ischemic change. Skull and face: Calvarium and visualized facial bones are intact, without suspicious lesions. Sinuses: Visualized sinuses and mastoids are clear. IMPRESSION: No acute intracranial pathology. Reviewed by: Lionel Maxwell MD on 05/03/2024 3:10 PM PDT Approved by: Lionel Maxwell MD on 05/03/2024 3:10 PM PDT Station ID: [id number]
--- NOTE | 2024-05-03 15:35 | ED Physician Documentation ---
PD HPI HEAD INJURY - Stated complaint Stated Complaint: GLF - Chief complaint Chief Complaint: Trauma Hd/Nk - History obtained from History obtained from: Patient - Additional information Additional information: The patient comes to the emergency department chief complaint of ground-level fall and head injury this afternoon about an hour and a half ago. She states that she was walking in sand and lost her balance and fell backwards, hitting her head on an Adjacent slab of concrete. She states the rest of her body hit the sand. Patient did not lose consciousness but did notice a sore, swollen a aleshia on the back of her scalp. Patient denies any other symptoms. She does not hurt in any other way. She denies any neurologic symptoms. No other complaints at this time. 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 : None HEENT: None Psych: Depression, Anxiety Musculoskeletal: None Derm: None - Past Surgical History Past Surgical History: Yes General: Gastric surgery - Present Medications Home Medications: Ambulatory Orders Medication Instructions Recorded Confirmed Escitalopram [Lexapro] 20 mg PO DAILY 05/03/24 Levothyroxine [Synthroid] 75 mcg PO DAILY 05/03/24 Propranolol [Inderal] 10 mg PO DAILY 05/03/24 buPROPion [Wellbutrin Xl] 150 mg PO DAILY 05/03/24 - Allergies Allergies/Adverse Reactions: Allergies Allergy/AdvReac Type Severity Reaction Status Date / Time Penicillins Allergy Unknown Unverified 05/03/24 13:50 - Social History Does the pt smoke?: No Smoking Status: Never smoker Does the pt drink ETOH?: Yes Does the pt have substance abuse?: No - Immunizations Immunizations are current?: Yes - POLST Patient has POLST: No PD ED PE NORMAL - Vitals Vital signs reviewed: Yes - General General: Alert and oriented X 3, No acute distress, Well developed/nourished - HEENT HEENT: PERRL, EOMI, Moist mucous membranes, Other (4 cm diameter area of contusion and 1 cm of elevation over posterior scalp. 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, No motor deficit, No sensory deficit, Normal speech - Psych Psych: Normal mood, Normal affect Results - Vitals Vitals: Vital Signs - 24 hr 05/03/24 13:42 Temperature 36.1 C L Heart Rate 94 Respiratory 16 Rate Blood Pressure 138/83 H O2 Saturation 98 Oxygen O2 Source Room air - Rads (name of study) Head CT Relevant Findings:: Final report received, See rad report (negative) PD Medical Decision Making - ED course Complexity details: reviewed results, re-evaluated patient, considered differential, d/w patient ED course: The patient overall looked good and had no other complaints besides hitting her head. Her CT was negative. We discussed the need for follow-up as well as usual indications for return. Departure - Departure Disposition: 01 Home, Self Care Clinical Impression: Closed head injury Qualifiers: Encounter type: initial encounter Qualified Code(s): S09.90XA - Unspecified injury of head, initial encounter Condition: Stable Instructions: ED Head Injury Closed Comments: Your head CT looks good. There is no bleeding in your brain. You may feel "off" for the next few days to week, and this is not unusual after head injury. However, if you begin to become significantly off balance, develop severe headache, or begin vomiting uncontrollably, you should return for reevaluation. Forms: PCP List
[2024-05-03 16:02] VITALS: BP 124/84
== END 2024-05-03 15:52 | disposition home or self-care (01) ==
LOC: ED 13:40
DX: S09.90XA Unspecified injury of head, initial encounter (principal); W18.30XA Fall on same level, unspecified, initial encounter; Y93.01 Activity, walking, marching and hiking; I10 Essential (primary) hypertension; E03.9 Hypothyroidism, unspecified; Z79.899 Other long term (current) drug therapy
CPT/HCPCS: 99283; 99284

== ENCOUNTER 2024-05-29 13:54 | Outpatient (CLI) | payer MEDICARE ==
--- NOTE | 2024-05-30 10:16 | Mammography Report ---
BILATERAL DIGITAL SCREENING MAMMOGRAM 3D/2D: 05/29/2024 CLINICAL: Routine screening. Comparison is made to exams dated: 11/24/2022 mammogram, 10/16/2021 mammogram, 10/17/2020 mammogram, 10/12/2019 mammogram, 10/17/2018 mammogram, and 10/14/2017 mammogram - [facility]. There are scattered areas of fibroglandular density in both breasts (category b / 25%-50% glandular t issue). No significant masses, calcifications, or other findings are seen in either breast. There has been no significant interval change. IMPRESSION: NEGATIVE There is no mammographic evidence of malignancy. A 1 year screening mammogram is recommended. Based on the Tyrer Cuzick model (a risk assessment model) the patient's lifetime risk is 2.5% and her 10 year risk is 0.0%. According to the ACR, ACS, and NCCN guidelines, an annual breast MRI exam román g with mammogram is recommended if the patient's lifetime risk is 20% or greater. This exam was interpreted at Station ID: [id number]. NOTE: For mammograms, a report in lay terms will be sent to the patient. Approximately 15% of breast malignancies will not be visualized mammographically. In the management of a palpable breast mass, a negative mammogram must not discourage biopsy of a clinically suspicious lesion. Electronically Signed By: Abraham brooks/mariano:05/29/2024 14:42:18 letter sent: No_Letter ACR BI-RADS Category 1: Negative [id number] PARENCHYMAL PATTERN: (A) - The breast(s) demonstrate(s) scattered fibroglandular densities. BI-RADS CATEGORY: (1) - 1 RECOMMENDATION: (ANNUAL) - Recommend routine annual screening mammography. [id number] 1 year screening LATERALITY: (B)
== END 2024-05-29 13:55 | disposition home or self-care (01) ==
LOC: DI 13:54
DX: Z12.31 Encounter for screening mammogram for malignant neoplasm of breast (principal); R92.323 Mammographic fibroglandular density, bilateral breasts

== ENCOUNTER 2024-05-29 15:00 | Outpatient (CLI) | payer MEDICARE ==
--- NOTE | 2024-05-29 17:57 | DEXA Report ---
PROCEDURE: Dexa Spine and/or Hip INDICATIONS: POST MENOPAUSAL TECHNIQUE: Dual energy x-ray absorptiometry (DXA) was performed on a [employer]. Regions measur ed are the AP Spine, femoral neck, and if needed forearm. COMPARISON: None FINDINGS: Lumbar Spine: Bone Mineral Density: 1.15 g/cm/cm,T score: -0.2. Left Femoral Neck: Bone Mineral Density: 0.731 g/cm/cm, T score: -2.2. Left Hip: Bone Mineral Density: 0.803 g/cm/cm,T score: -1.6. FRAX risk factors: None given. 10 year risk of major osteoporotic fracture: 14.7%% major osteoporotic fracture = hip, clinical vertebral, proximal humerus, distal forearm 10 year risk of hip fracture: 4.2%% (T score greater or equal to -1.0: NORMAL) (T score from -1.1 to -2.4: OSTEOPENIA) (T score less than or equal to -2.5 to: OSTEOPOROSIS) Impression: By WHO criteria, this patient has moderate to severe osteopenia in the left femoral neck, mild to mod erate in the left hip. Patients with diagnosis of osteoporosis or osteopenia should have regular bone mineral density assess ment. For those eligible for Medicare, routine testing is allowed once every 2 years. Testing frequ ency can be increased for patients who have rapidly progressing disease or for those who are receivin g medical therapy to restore bone mass. Reviewed by: Ashli Huynh MD on 05/29/2024 5:56 PM PDT Approved by: Ashli Huynh MD on 05/29/2024 5:56 PM PDT Station ID: [id number]
== END 2024-05-29 15:01 | disposition home or self-care (01) ==
LOC: DI 15:00
PROVIDERS: ATTEND Physician Assistant Medical
DX: Z78.0 Asymptomatic menopausal state (principal); M85.89 Other specified disorders of bone density and structure, multiple sites

== ENCOUNTER 2024-07-05 14:00 | Outpatient (CLI) | payer MEDICARE ==
--- NOTE | 2024-07-05 15:51 | XRAY Report ---
PROCEDURE: Lumbar Spine 2-3V INDICATIONS: LOW BACK PAIN TECHNIQUE: 3 views of the lumbar spine were acquired. COMPARISON: 08/13/2023 FINDINGS: Bones: Trace anterolisthesis of L4 on L5. Slight L3 superior endplate deformity again seen. New compr ession fracture at L2, slightly increased from prior. Mild to moderate background degenerative changes. Soft tissues: Increased colonic fecal and gas burden. Gastric band device. IMPRESSION: Compression fracture fracture, with less than 50% height loss at L2. This is age-indeterminate but is new compared to 08/13/2023. Background degenerative changes. Increased fecal loading. Reviewed by: Abraham Jacobs MD on 07/05/2024 3:49 PM PDT Approved by: Abraham Jacobs MD on 07/05/2024 3:49 PM PDT Station ID: [id number]
== END 2024-07-05 14:15 | disposition home or self-care (01) ==
LOC: DI.N 14:00
PROVIDERS: ATTEND Nurse Practitioner
DX: M48.56XA Collapsed vertebra, not elsewhere classified, lumbar region, initial encounter for fracture (principal); M47.816 Spondylosis without myelopathy or radiculopathy, lumbar region